=== PATIENT | female | born 1945 | race Caucasian/White ===

== ENCOUNTER → 2018-05-27 | Outpatient (CLI) | payer MEDICARE, OTHER ==
[~2018-05-27] MED LIST: ACET325 PO; ALBU90OI6 INH; AMLO5 PO; Adult Low Dose81 MG PO; BENZ100A PO; CHOL10002; FLONASE ALLERG9.9 ML; Flovent Diskus50 MCG IH; LACT10SY; LEVSOD50; LISI20 PO; LOSA50; POTA10T PO; Pravastatin Sod40 MG PO; Prilosec Otc20 MG; STOOL SOFTENER1 EAC1 PO
[2018-06-03 11:43] LABS: Stool Occult Bld Immuno 1 Positive (NEGATIVE); Stool Occult Bld Immuno 2 Negative (NEGATIVE)
== END | disposition home or self-care (01) ==
LOC: LAB 23:00 → LAB SHORT 23:00 → LAB FUT 05-22 14:45
PROVIDERS: Internal Medicine Gastroenterology
DX: K59.00 Constipation, unspecified (principal); D50.9 Iron deficiency anemia, unspecified
CPT/HCPCS: G0328

== ENCOUNTER 2018-12-11 18:24 | Inpatient (IN) | payer MEDICARE, OTHER ==
[~2018-12-11] VITALS: Ht 152.4 cm; Wt 56.4 kg
[~2018-12-11 18:24] MED LIST changes: -Adult Low Dose81 MG PO; +Aspirin EC81 MG PO; -CHOL10002; -FLONASE ALLERG9.9 ML; +Flonase 0.05% N16 GM; -LEVSOD50; +LEVSOD50 PO; -LOSA50; +LOSA50 PO; -Prilosec Otc20 MG; +Prilosec Otc20 MG PO; +VITAMIN D31000 UNI2 PO
[2018-12-11] MEDS ORDERED: Ferrous Glucon324 M1 PO (18:42)
[2018-12-11] MEDS ORDERED: Colace100 MG PO (18:44)
[2018-12-11] MEDS ORDERED: ASCO500 PO (18:45)
[2018-12-11] MEDS ORDERED: Calcium 600-D1 EACH PO (18:45)
[2018-12-11 19:29] LABS: Magnesium, Blood 2.1 mg/dL (1.6-2.4)
[2018-12-11 19:36] LABS: Anion Gap 5 mmol/L (6-16); Blood Urea Nitrogen 14 mg/dL (8-24); Bun/Creatinine Ratio 17.4 (12.0-20.0); CO2, Blood 43 mmol/L (21-32); Calcium, Blood 9.2 mg/dL (8.5-10.1); Chloride, Blood 92 mmol/L (98-108); Creatinine, Blood 0.81 mg/dL (0.40-1.00); Glomerular Filtration Rate >60 (60-); Glucose, Blood 98 mg/dL (70-99); Potassium, Blood 1.8 mmol/L (3.5-5.5); Sodium, Blood 140 mmol/L (136-145)
[2018-12-12 06:49] LABS: Anion Gap 3 mmol/L (6-16); Blood Urea Nitrogen 9 mg/dL (8-24); Bun/Creatinine Ratio 13.9 (12.0-20.0); CO2, Blood 38 mmol/L (21-32); Calcium, Blood 9.1 mg/dL (8.5-10.1); Chloride, Blood 100 mmol/L (98-108); Creatinine, Blood 0.65 mg/dL (0.40-1.00); Glomerular Filtration Rate >60 (60-); Glucose, Blood 107 mg/dL (70-99); Magnesium, Blood 2.1 mg/dL (1.6-2.4); Potassium, Blood 2.7 mmol/L (3.5-5.5); Sodium, Blood 141 mmol/L (136-145)
--- NOTE | 2018-12-12 07:30 | NUR ---
Rn summary: Patient was admitted via stretcher form the ED at 2140 last evening. Homer and son Abraham are at bedside and gave pt history. Patient has gone from walking with walker and assist to almost total assist to get up. Pt in mostly nonverbal. She does laugh out loud. P is alert and able to use communication point board. Pt admitting K+ was 1.8. Pt did receive 4o MEQ orally and 80 MEQ IV over several hours. Pt was assisted to C x1 and was a 2 person max assist. Pt used bedpan afterward. She voids about 200 cc clear yellow urine. Pt did call frequently. Likes to lie on her left side. Pt repositioned frequently. Pt takes meds in applesauce and drinks regular liquids without difficulty. Report to on comming shift. Bed alarm is on, pt will attempt to sit on edge of bed.
--- NOTE | 2018-12-12 17:43 | NUR ---
SHIFT SUMMARY: PT IS ALERT AND ORIENTED TO HER FAMILY BUT IS UNABLE TO VERBALIZE HER WORDS OR NEEDS. AT TIMES SHE IS ABLE TO USE THE COMMUNICATION BOARD TO COMMUNICATE HER NEEDS. FAMILY IS VERY ATTENTIVE AND HAS BEEN AT HER BEDSIDE MOST OF THE DAY. POTASSIUM CONTINUES TO BE LOW OF MORNING LABS AND IV/PO POTASSIUM WERE GIVEN PER DR CRUZ ORDERS. IV REMAINS INTACT AND PATENT. PT USES BED ALEXANDER FOR TOILETING.
[2018-12-13 05:29] LABS: Anion Gap 5 mmol/L (6-16); Blood Urea Nitrogen 14 mg/dL (8-24); Bun/Creatinine Ratio 17.6 (12.0-20.0); CO2, Blood 36 mmol/L (21-32); Calcium, Blood 9.2 mg/dL (8.5-10.1); Chloride, Blood 100 mmol/L (98-108); Creatinine, Blood 0.79 mg/dL (0.40-1.00); Glomerular Filtration Rate >60 (60-); Glucose, Blood 93 mg/dL (70-99); Phosphorus, Blood 3.7 mg/dL (2.5-4.9); Potassium, Blood 2.8 mmol/L (3.5-5.5); Sodium, Blood 141 mmol/L (136-145)
--- NOTE | 2018-12-13 06:21 | NUR ---
SHIFT SUMMARY PT MOSTLY NONVERBAL BUT CAN SOMETIMES ANSWER TO YES/NO QUESTIONS WILL ALSO MAKE GRUNTS/SOUNDS WHEN ATTEMPTING TO COMMUNICATE. USING BED ALEXANDER TO VOID BUT SOMETIMES ALSO INCONTINENT. SHE WAS ABLE TO SLEEP T/O NIGHT. CALL LIGHT IN REACH.
[2018-12-13] MEDS ORDERED: Calcium 600 Wi1 EAC3 PO (16:09)
[2018-12-13] MEDS ORDERED: POTCHL20ER PO (16:10)
--- NOTE | 2018-12-13 16:56 | NUR ---
PT DCD HOME WITH AND SON. ALL RX AND INSTRUCTIONS REVIEWED WITH FAMILY. SON STATES SHE ALREADY HAS AN APPT SCHEDULED WITH PCP ON SATURDAY AND PLAN TO ATTEND. WILL CALL AND SET UP LABS TO BE DRAWN BEFORE PCP APPT. IV REMOVED WITH NO ISSUES. ALL PERSONAL BELONGINGS SENT WITH PT. PT STABLE UPON DC. RX ORDERS CALLED INTO PHARMACY OF CHOICE BY CHARGE NURSE.
== END 2018-12-13 17:01 | disposition home or self-care (01) | DRG 641 ==
LOC: ER 18:24 → MEDS 21:44
PROVIDERS: Emergency Medicine; Internal Medicine; ADMIT Hospitalist
DX: E87.6 Hypokalemia (principal); G31.85 Corticobasal degeneration; I10 Essential (primary) hypertension; E03.9 Hypothyroidism, unspecified; E78.5 Hyperlipidemia, unspecified; Z79.82 Long term (current) use of aspirin
CPT/HCPCS: 36415; 80048; 80069; 83735; 84132; 93005; 93010; 96361; 96365; 96372; 97161; 97530; 99285-25; G0378; J1650; J3480; J7030; J7050

== ENCOUNTER → 2019-06-30 | Outpatient (CLI) | payer MEDICARE, OTHER ==
[~2019-06-30] MED LIST changes: +ASCO500 PO; +Calcium 600 Wi1 EAC3 PO; +Calcium 600-D1 EACH PO; +Colace100 MG PO; +Ferrous Glucon324 M1 PO; +POTCHL20ER PO
[2019-06-30 14:20] LABS: Creatinine, Urine Random 89.2 mg/dL (27.00-270.00)
[2019-06-30 14:23] LABS: Microalb/Creat Ratio UR, Rand 93.946 mg/g (0.000-30.000); Microalbumin, Random Urine 83.8 mg/L (0.000-20.000)
== END | disposition home or self-care (01) ==
LOC: LAB 12:38 → LAB SHORT 12:38 → LAB FUT 05-26 11:05
PROVIDERS: Internal Medicine
DX: D64.9 Anemia, unspecified (principal); E11.8 Type 2 diabetes mellitus with unspecified complications; I10 Essential (primary) hypertension; E78.5 Hyperlipidemia, unspecified; Z79.899 Other long term (current) drug therapy
CPT/HCPCS: 82043; 82570